=== PATIENT | male | born 1970 | race Caucasian/White ===

== ENCOUNTER 2025-06-13 09:53 | Outpatient (AMB) | payer OTHER, SELFPAY ==
--- NOTE | 2025-06-13 09:56 | MHC.PC.OV ---
Vital Signs 06/13/25 09:58 Height 6 ft 1 in Weight 131 lb 2 oz BMI 17.3 BP 116/68 Blood Pressure Location Lt brachial Position Sitting Respiration 18 Pulse 50 Pulse Source Pulse Oximeter Temp Source Temporal Artery Scan Pulse Oximetry (%) 98 Oxygen Delivery Method Room Air Intake Visit Reasons: establish [facility] [employer] Required: No Accompanied by: Self / Same As Patient Allergies No Known Allergies Allergy (Verified 06/13/25 10:00) Medication List - Last Reconciled 06/13/25 by Briseyda Pennington MD flecainide 50 mg PO Q12H Tobacco use date assessed: 06/13/25 Dental Screening Dental Screen Date: 06/13/25 Did you have a dental visit in the last 12 months?: Yes Did you have a dental problem in the last 6 months where you did not have access to dental care?: No Was dental information given to patient?: Patient has dentist HPI HPI Comments History of Present Illness Details Patient is a 55-year-old male presenting to [facility] and for follow up visit after recent hospitalization for palpitations. 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 He states he is scheduled for cardiac ablation with Dr. Dami Barnhart next 06/18/2025. He was started on flecainide 50 mg twice daily and scheduled to stop it tonight in preparation for his upcoming procedure. Patient reports history of SVT S/p ablation in 2013, since which he has been doing well until the recent episode. He reports history of mild thrombocytopenia, denies any history of bleeding. Denies being on other medications other than recently started flecainide Recent lab work from the hospital showed a TSH of 5.99, a normal free T4, hemoglobin A1c of 5.3%, slightly low Hgb 13.0, and platelets of 125. Normal electrolytes, magnesium, normal kidney function. His father and maternal grandfather both had lung cancer and were smokers. He denies any past or present use of tobacco, alcohol, or recreational drugs. He lives with his sister and mother. [facility] Medical History (Updated 06/13/25 @ 11:18 by Briseyda Pennington MD) Heart palpitations Social History Alcohol intake: never Patient Tobacco Use Status: Never used Tobacco e-Cigarette/Vaping Use: Never Used Current occupational status: employed Cognitive needs: No Hearing needs: No Vision needs: No Questionnaire PHQ-9 Over the last 2 weeks, how often have you been bothered by any of the following problems? 1. Little interest or pleasure in doing things: not at all 2. Feeling down, depressed, or hopeless: not at all 3. Trouble falling or staying asleep, or sleeping too much: not at all 4. Feeling tired or having little energy: not at all 5. Poor appetite or overeating: not at all 6. Feeling bad about yourself - or that you are a failure or have let yourself or your family down: not at all 7. Trouble concentrating on things, such as reading the newspaper or watching television: not at all 8. Moving or speaking so slowly that other people could have noticed. Or the opposite - being so fidgety or restless that you have been moving around a lot more than usual: not at all 9. Thoughts that you would be better off or of hurting yourself in some way: not at all Total score: 0 Source: Developed by Drs. Freedom Aguirre, Tali David, Dudley Riley and colleagues, with an educational danielle from [employer]. Thrive Questionnaire I am a: Patient What is your living situation today?: I have a steady place to live Within the past 12 months, did the food you bought not last and you didn't have the money to get more?: Never true Within the past 12 months, did you worry whether your food would run out before you got money to buy more?: Never true Do you have trouble paying for medicines?: No Do you have trouble getting transportation to medical appointments?: No Do you have trouble paying your heating and electricity bill?: No Do you have trouble taking care of your child, family member or friend?: No Do you have trouble with day-to-day activities such as bathing, preparing meals, shopping, managing finances, etc.?: No Are you currently unemployed and looking for a job?: No Are you interested in more education?: No Please select the resources that you would like help with: None Currently or been in a relationship where the following occur: No concerns reported THRIVE Score: 0 AUDIT C Alcohol Use Questionnaire (AUDIT-C) 1. How often do you have a drink containing alcohol?: Never Total Score: 0 GARRETT-7 AMB Questionnaire GARRETT-7 Feeling nervous, anxious, or on edge: 0 = Not at all Not being able to stop or control worryin = Not at all Worrying too much about different things: 0 = Not at all Trouble relaxin = Not at all Being so restless that it is hard to sit still: 0 = Not at all Becoming easily annoyed or irritable: 0 = Not at all Feeling afraid as if something awful might happen: 0 = Not at all Total GARRETT-7 score (0-4 normal; 5-9 mild; 10-14 moderate; 15-21 severe): 0 Source: Developed by Drs. Freedom Aguirre, Tali David, Dudley Riley and colleagues, with an educational danielle from [employer]. Physical exam (Primary Care) Vital Signs: Last Vital Signs Pulse 50 06/13/25 09:58 Resp 18 06/13/25 09:58 BP 116/68 06/13/25 09:58 Pulse Ox 98 06/13/25 09:58 Oxygen Delivery Method Room Air 06/13/25 09:58 General: Well-appearing, alert, oriented ?3, in no acute distress. Cardiovascular: Slow rate 56, Regular rhythm, S1-S2 appreciated, no murmurs, rubs or gallops. Respiratory: Lungs clear to auscultation bilaterally, no wheezes, rales or rhonchi. Abdomen: Soft, nontender, nondistended. Normoactive bowel sounds. BMI result Body Mass Index 17.3 Tobacco/Smoking Status: Tobacco use Status Tobacco use date assessed 06/13/25 06/13/25 10:05 Patient Tobacco Use Status Never used Tobacco 06/13/25 10:05 e-Cigarette/Vaping Use Never Used 06/13/25 10:05 PHQ-9: PHQ-9 Score PHQ-9: Total score 0 06/13/25 09:58 Currently or been in a relationship where the following occur: No concerns reported Coding Level of Care Code New Pt Level 4 (14622) Diagnoses Establishing care with new doctor, encounter for Z76.89 SVT (supraventricular tachycardia) I47.10 Anemia, unspecified type D64.9 Anemia type: unspecified type Thrombocytopenia D69.6 Abnormal TSH R79.89 Assessment & Plan Assessment & Plan (1) Establishing care with new doctor, encounter for: Code(s): Z76.89 - Persons encountering health services in other specified circumstances Plan: Patient is a 55-year-old male presenting to establish care. He has not seen a physician in years. 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 He states he is scheduled for ablation on Monday06/18/[address] Barnhart [facility]. We will obtain records (3) Anemia: Code(s): D64.9 - Anemia, unspecified Category: Medical Qualifiers: Anemia type: unspecified type Qualified Code(s): D64.9 - Anemia, unspecified Plan: Per recent blood work from the hospital, showed a slightly low hemoglobin of 13. We will further workup with iron panel, retic count. (4) Thrombocytopenia: Comment: Mild thrombocytopenia Code(s): D69.6 - Thrombocytopenia, unspecified Category: Medical Plan: Patient reports history of mild thrombocytopenia without prior history of bleeding. Recent blood work reviewed platelets of 125. (5) Abnormal TSH: Code(s): R79.89 - Other specified abnormal findings of blood chemistry Plan: Recent blood work shows TSH of 5.99 and free T4 of 0.95. Will repeat blood work in 6 weeks and monitor Plan Follow up in 2 months to review blood work Orders: Orders Lipid Panel with Reflex 6 Weeks Z13.220 - Encounter for screening for lipoid disorders IRON PROFILE 6 Weeks D64.9 - Anemia, unspecified TSH reflex Free T4 6 Weeks R79.89 - Other specified abnormal findings of blood chemistry Vitamin D 25-OH (D2 and D3) 6 Weeks Z13.21 - Encounter for screening for nutritional disorder Reticulocyte Count 6 Weeks D64.9 - Anemia, unspecified Vitamin B12 and Folate 6 Weeks D64.9 - Anemia, unspecified Comprehensive Met. Panel 6 Weeks Z00.00 - Encounter for general adult medical examination without abnormal findings Complete Blood Count Auto Diff 6 Weeks D64.9 - Anemia, unspecified
[2025-06-13 09:58] VITALS: BP 116/68; PULSE 50; RESP 18; O2SAT 98; BMI 17.3
== END 2025-06-13 10:30 | disposition home or self-care (01) ==
LOC: HO.HMCH 09:53
PROVIDERS: PCP Student in an Organized Health Care Education/Training Program; Visit Provider Student in an Organized Health Care Education/Training Program
DX: Z76.89 Persons encountering health services in other specified circumstances (principal); I47.10 Supraventricular tachycardia, unspecified; D64.9 Anemia, unspecified; D69.6 Thrombocytopenia, unspecified; R79.89 Other specified abnormal findings of blood chemistry